=== PATIENT | female | born 1965 | race Caucasian/White ===

== ENCOUNTER 2020-07-16 16:52 | Emergency (ER) | payer OTHER ==
[2020-07-16 17:02] VITALS: BP 138/80; PULSE 84; TEMP 98.2; BMI 24.7
[2020-07-16] MEDS ORDERED: METOCLOPRAMIDE HCL INJECTION 10 MG/2 ML VIAL IVPUSH ONE (17:49)
[2020-07-16] MEDS ORDERED: LACTATED RINGERS SOLUTION 1000 ML INFUS.BAG IV ONE (17:49)
[2020-07-16] MEDS ORDERED: ACETAMINOPHEN 325 MG TABLET (FP) PO ONE (17:50)
[2020-07-16] MEDS ORDERED: ACETAMINOPHEN 325 MG TABLET (FP) ONE (18:02)
[2020-07-16] MEDS ORDERED: METOCLOPRAMIDE HCL INJECTION 10 MG/2 ML VIAL ONE (18:03)
[2020-07-16] MEDS ORDERED: valACYclovir HCL 1000 MG TABLET PO ONE (18:14)
[2020-07-16] MEDS ORDERED: predniSONE 20 MG TABLET (UD) PO ONE (18:14)
[2020-07-16] MEDS ORDERED: SULFAMETHOXAZOLE/TRIMETHOPRIM 800MG/160MG D.S. TABLET PO ONE (18:14)
[2020-07-16 18:34] LABS: BASO % 2.7 % (0-2.0); EOS % 0.7 % (0-4.5); HEMATOCRIT 37.2 % (32.4-45.2); HEMOGLOBIN 12.4 GM/dL (10.7-15.3); LYMPH % 30.5 % (8-40); MCH 30.2 pg (25.7-33.7); MCHC 33.3 g/dl (32.0-36.0); MEAN CELL VOLUME 90.7 fl (80-96); MEAN PLT VOLUME 7.7 fl (7.5-11.1); NEUT % 60.1 % (42.8-82.8); PLATELET COUNT 243 K/MM3 (134-434); RDW 15.4 % (11.6-15.6); WHITE BLOOD COUNT 5.8 K/mm3 (4.0-10.0)
[2020-07-16 18:53] LABS: POTASSIUM 4.3 mmol/L (3.5-5.1)
[2020-07-16 18:58] LABS: CALCIUM 9.5 mg/dL (8.5-10.1)
[2020-07-16 18:59] LABS: ALBUMIN 3.6 g/dl (3.4-5.0); BLOOD UREA NITROGEN 18.2 mg/dL (7-18)
[2020-07-16 19:02] LABS: CREATININE 0.8 mg/dL (0.55-1.3)
[2020-07-16 19:04] LABS: BILIRUBIN,TOTAL 0.4 mg/dL (0.2-1); TOT PROT 7.1 g/dl (6.4-8.2)
[2020-07-16 19:19] LABS: ERYTHROCYTE SEDIMENTATION RATE 19 mm/hr (0-30)
[2020-07-16] MEDS ORDERED: valACYclovir HCL 500 MG TABLET (FP) ONE (19:42)
[2020-07-16] MEDS ORDERED: SULFAMETHOXAZOLE/TRIMETHOPRIM 800MG/160MG D.S. TABLET ONE (19:42)
[2020-07-16] MEDS ORDERED: predniSONE 20 MG TABLET (UD) ONE (19:42)
[2020-07-16 21:19] LABS: POTASSIUM 3.7 mmol/L (3.5-5.1)
[2020-07-16 21:20] LABS: CALCIUM 8.8 mg/dL (8.5-10.1)
[2020-07-16 21:21] LABS: BLOOD UREA NITROGEN 16.3 mg/dL (7-18)
[2020-07-16 21:24] LABS: CREATININE 0.8 mg/dL (0.55-1.3)
== END 2020-07-16 22:13 | disposition home or self-care (01) ==
LOC: JER 16:52
PROC: 3E033GC Introduction of Other Therapeutic Substance into Peripheral Vein, Percutaneous Approach (ICD-10-PCS; principal; 2020-07-16)
PROC: 3E033GC Introduction of Other Therapeutic Substance into Peripheral Vein, Percutaneous Approach (ICD-10-PCS; 2020-07-16)
DX: G51.9 Disorder of facial nerve, unspecified (principal); L08.9 Local infection of the skin and subcutaneous tissue, unspecified; R51.9 Headache, unspecified
CPT/HCPCS: 36415; 70450-TC; 80048; 80053; 85025; 85651; 87804; 99284-25; C9803; U0003; U0005

== ENCOUNTER 2020-08-14 23:20 | Emergency (ER) | payer OTHER ==
[2020-08-14 23:30] VITALS: BMI 24.7
[2020-08-15] MEDS ORDERED: METOCLOPRAMIDE HCL INJECTION 10 MG/2 ML VIAL IVPUSH ONE (01:20)
[2020-08-15] MEDS ORDERED: IBUPROFEN 400 MG TABLET (FP) PO ONE ×2 (01:20→02:26)
[2020-08-15] MEDS ORDERED: SODIUM CHLORIDE 0.9% 500 ML INFUS.BAG IV ONE (01:20)
[2020-08-15] MEDS ORDERED: METOCLOPRAMIDE HCL INJECTION 10 MG/2 ML VIAL ONE (02:26)
[2020-08-15 02:54] LABS: BASO % 0.4 % (0-2.0); EOS % 2.5 % (0-4.5); HEMATOCRIT 39.3 % (32.4-45.2); HEMOGLOBIN 13.1 GM/dL (10.7-15.3); LYMPH % 30.7 % (8-40); MCH 31.1 pg (25.7-33.7); MCHC 33.3 g/dl (32.0-36.0); MEAN CELL VOLUME 93.3 fl (80-96); MEAN PLT VOLUME 7.7 fl (7.5-11.1); MONO % 8.8 % (3.8-10.2); NEUT % 57.6 % (42.8-82.8); PLATELET COUNT 316 K/MM3 (134-434); RBC 4.21 M/mm3 (3.60-5.2); WHITE BLOOD COUNT 5.9 K/mm3 (4.0-10.0)
[2020-08-15 04:15] LABS: CALCIUM 9.1 mg/dL (8.5-10.1)
[2020-08-15 04:17] LABS: ALBUMIN 3.7 g/dl (3.4-5.0); BLOOD UREA NITROGEN 16.4 mg/dL (7-18)
[2020-08-15 04:19] LABS: CREATININE 0.9 mg/dL (0.55-1.3)
[2020-08-15 04:20] LABS: BILIRUBIN,TOTAL 0.3 mg/dL (0.2-1); TOT PROT 7.7 g/dl (6.4-8.2)
[2020-08-15 05:06] VITALS: BP 110/67; PULSE 81; TEMP 98.3
== END 2020-08-15 06:08 | disposition home or self-care (01) ==
LOC: JER 23:20
PROC: 3E033GC Introduction of Other Therapeutic Substance into Peripheral Vein, Percutaneous Approach (ICD-10-PCS; principal; 2020-08-14)
DX: R51.9 Headache, unspecified (principal); R10.84 Generalized abdominal pain
CPT/HCPCS: 36415; 74177-TC; 80053; 83690; 85025; 99285-25; Q9967

== ENCOUNTER 2021-10-22 13:52 | Emergency (ER) | payer OTHER ==
[2021-10-22 14:12] VITALS: BP 115/79; PULSE 95; TEMP 97.8; BMI 26.4
[2021-10-22 16:57] LABS: BASO % 0.6 % (0-2.0); EOS % 0.6 % (0-4.5); HEMATOCRIT 41.1 % (32.4-45.2); HEMOGLOBIN 13.9 GM/dL (10.7-15.3); LYMPH % 23.1 % (8-40); MCH 30.7 pg (25.7-33.7); MCHC 33.8 g/dl (32.0-36.0); MEAN PLT VOLUME 7.2 fl (7.5-11.1); MONO % 4.2 % (3.8-10.2); NEUT % 71.5 % (42.8-82.8); PLATELET COUNT 280 10^3/uL (134-434); RBC 4.51 M/mm3 (3.60-5.2); RDW 13.1 % (11.6-15.6); WHITE BLOOD COUNT 6.6 K/mm3 (4.0-10.0)
[2021-10-22 17:24] LABS: BLOOD UREA NITROGEN 10.1 mg/dL (7-18); CALCIUM 9.6 mg/dL (8.5-10.1)
[2021-10-22 17:25] LABS: ALBUMIN 4.2 g/dl (3.4-5.0)
[2021-10-22 17:28] LABS: CREATININE 0.8 mg/dL (0.55-1.3)
[2021-10-22 17:29] LABS: BILIRUBIN,TOTAL 0.4 mg/dL (0.2-1); TOT PROT 8.1 g/dl (6.4-8.2)
== END 2021-10-22 18:55 | disposition home or self-care (01) ==
LOC: JER 13:52
DX: R07.9 Chest pain, unspecified (principal); R55 Syncope and collapse
CPT/HCPCS: 36415; 71046-TC-FY; 80053; 84484; 85025; 93005; 93010; 99284-25

== ENCOUNTER 2021-11-13 13:10 | Emergency (ER) | payer OTHER ==
[2021-11-13 13:38] VITALS: BP 113/76; PULSE 68; RESP 16; TEMP 97.8; BMI 25.7
== END 2021-11-13 14:51 | disposition home or self-care (01) ==
LOC: JERFT 13:10
PROC: 2W3TX1Z Immobilization of Left Foot using Splint (ICD-10-PCS; principal; 2021-11-13)
DX: S92.144A Nondisplaced dome fracture of right talus, initial encounter for closed fracture (principal); W10.9XXA Fall (on) (from) unspecified stairs and steps, initial encounter
CPT/HCPCS: 73630-TC-RT-FY; 99283-25

== ENCOUNTER 2021-11-18 12:34 | Emergency (ER) | payer OTHER ==
[2021-11-18 13:03] VITALS: BP 110/76; PULSE 82; RESP 18; TEMP 98.3; BMI 24.7
[2021-11-18] MEDS ORDERED: KETOROLAC TROMETHAMINE 30 MG/1 ML VIAL IM ONE (13:57)
[2021-11-18] MEDS ORDERED: DIPHTH,PERTUSS(ACELL),TET 0.5 ML DISP.SYRIN IM ONE ×2 (13:57→14:09)
[2021-11-18] MEDS ORDERED: KETOROLAC TROMETHAMINE 30 MG/1 ML VIAL ONE (14:08)
== END 2021-11-18 17:20 | disposition home or self-care (01) ==
LOC: JERFT 12:34 → JER 12:34 → JERFT 17:20
PROC: 3E0234Z Introduction of Serum, Toxoid and Vaccine into Muscle, Percutaneous Approach (ICD-10-PCS; principal; 2021-11-18)
PROC: 3E0233Z Introduction of Anti-inflammatory into Muscle, Percutaneous Approach (ICD-10-PCS; 2021-11-18)
DX: S09.90XA Unspecified injury of head, initial encounter (principal); S50.812A Abrasion of left forearm, initial encounter; S80.812A Abrasion, left lower leg, initial encounter; Y04.2XXA Assault by strike against or bumped into by another person, initial encounter
CPT/HCPCS: 70450-TC; 71046-TC-FY; 73030-TC-LT-FY; 73030-TC-RT-FY; 73070-TC-LT-FY; 73560-TC-LT-FY; 90471; 90715; 96372; 99285-25

== ENCOUNTER 2021-12-31 09:52 | Emergency (ER) | payer OTHER ==
[2021-12-31 09:58] VITALS: BMI 25.7
[2021-12-31] MEDS ORDERED: ACETAMINOPHEN 1000 MG/100 ML BAG IVPB ONE (11:04)
[2021-12-31] MEDS ORDERED: SODIUM CHLORIDE 0.9% 500 ML INFUS.BAG IV ONE (11:04)
[2021-12-31] MEDS ORDERED: ACETAMINOPHEN INJECTION 100 ML IVPB ONE (11:32)
[2021-12-31 11:57] LABS: EPI CELLS 1 /uL (0-25.1); HYALINE CASTS 0 /uL (0-3.1); URINE APPEARANCE CLEAR; URINE BACTERIA 2 /uL (0-1359); URINE BILIRUBIN NEGATIVE (NEGATIVE); URINE COLOR YELLOW; URINE GLUCOSE (UA) NEGATIVE (NEGATIVE); URINE KETONE NEGATIVE (NEGATIVE); URINE LEUK ESTERASE NEGATIVE (NEGATIVE); URINE NITRITE NEGATIVE (NEGATIVE); URINE PROTEIN NEGATIVE (NEGATIVE); URINE RBC 5 /uL (0-23.9); URINE UROBILINOGEN 0.2 mg/dL (0.2-1.0); URINE WBC 2 /uL (0-25.8)
[2021-12-31 12:08] LABS: BASO % 0.8 % (0-2.0); EOS % 2.3 % (0-4.5); HEMATOCRIT 39.6 % (32.4-45.2); HEMOGLOBIN 13.5 GM/dL (10.7-15.3); MCH 31.5 pg (25.7-33.7); MCHC 34.2 g/dl (32.0-36.0); MEAN CELL VOLUME 92.1 fl (80-96); MEAN PLT VOLUME 8.1 fl (7.5-11.1); MONO % 6.1 % (3.8-10.2); NEUT % 68.8 % (42.8-82.8); PLATELET COUNT 308 10^3/uL (134-434); RBC 4.29 M/mm3 (3.60-5.2); RDW 13.5 % (11.6-15.6); WHITE BLOOD COUNT 6.6 K/mm3 (4.0-10.0)
[2021-12-31 12:15] LABS: ALBUMIN 3.6 g/dl (3.4-5.0); BLOOD UREA NITROGEN 15.8 mg/dL (7-18); CALCIUM 9.3 mg/dL (8.5-10.1); CHLORIDE 105 mmol/L (98-107); CO2 30 mmol/L (21-32); GLUCOSE,RANDOM 87 mg/dL (74-106); SODIUM 139 mmol/L (136-145)
[2021-12-31 12:18] LABS: CREATININE 0.7 mg/dL (0.55-1.3); SGOT/AST 67 U/L (15-37); SGPT/ALT 43 U/L (13-61)
[2021-12-31 12:20] LABS: BILIRUBIN,TOTAL 0.4 mg/dL (0.2-1)
[2021-12-31 12:21] LABS: ALK PHOS 101 U/L (45-117)
[2021-12-31 12:26] LABS: ANION GAP 4 MMOL/L (8-16)
[2021-12-31 16:31] VITALS: BP 110/78; PULSE 78; RESP 19; TEMP 98.6
== END 2021-12-31 16:33 | disposition home or self-care (01) ==
LOC: JER 09:52
PROC: 3E033GC Introduction of Other Therapeutic Substance into Peripheral Vein, Percutaneous Approach (ICD-10-PCS; principal; 2021-12-31)
DX: R10.32 Left lower quadrant pain (principal)
CPT/HCPCS: 36415; 74177-TC; 80053; 81003; 84132; 85025; 87086; 99285-25; Q9967

== ENCOUNTER 2022-02-22 11:19 | Emergency (ER) | payer OTHER ==
[2022-02-22 11:46] VITALS: BP 133/80; PULSE 83; RESP 18; TEMP 98.1; BMI 24.1
[2022-02-22] MEDS ORDERED: ACETAMINOPHEN 500 MG TABLET (FP) PO ONE (12:27)
[2022-02-22] MEDS ORDERED: ACETAMINOPHEN 500 MG TABLET (FP) ONE (12:41)
[2022-02-22] MEDS ORDERED: IBUPROFEN 600 MG TABLET (FP) PO ONE ×2 (13:20→13:27)
== END 2022-02-22 13:45 | disposition home or self-care (01) ==
LOC: JER 11:19
DX: S06.0X0A Concussion without loss of consciousness, initial encounter (principal); W22.8XXA Striking against or struck by other objects, initial encounter
CPT/HCPCS: 70450-TC; 99284-25

== ENCOUNTER 2023-01-22 10:38 | Emergency (ER) | payer OTHER ==
[2023-01-22 10:48] VITALS: TEMP 97.8; BMI 24.6
[2023-01-22 12:23] LABS: BASO % 0.3 % (0-2.0); HEMATOCRIT 40.7 % (32.4-45.2); HEMOGLOBIN 13.9 GM/dL (10.7-15.3); LYMPH % 26.9 % (8-40); MCH 30.9 pg (25.7-33.7); MCHC 34.2 g/dl (32.0-36.0); MEAN CELL VOLUME 90.4 fl (80-96); MEAN PLT VOLUME 7.1 fl (7.5-11.1); MONO % 6.7 % (3.8-10.2); NEUT % 64.1 % (42.8-82.8); PLATELET COUNT 297 10^3/uL (134-434); RDW 13.6 % (11.6-15.6); WHITE BLOOD COUNT 6.1 K/mm3 (4.0-10.0)
[2023-01-22 12:24] LABS: URINE APPEARANCE Clear; URINE BILIRUBIN Negative (NEGATIVE); URINE COLOR Yellow; URINE GLUCOSE (UA) Negative (NEGATIVE); URINE KETONE Negative (NEGATIVE); URINE LEUK ESTERASE Negative (NEGATIVE); URINE NITRITE Negative (NEGATIVE); URINE PROTEIN Negative (NEGATIVE); URINE UROBILINOGEN 0.2 mg/dL (0.2-1.0)
[2023-01-22 12:40] LABS: POTASSIUM 4.8 mmol/L (3.5-5.1)
[2023-01-22 12:42] LABS: CALCIUM 9.4 mg/dL (8.5-10.1)
[2023-01-22 12:43] LABS: ALBUMIN 3.8 g/dl (3.4-5.0); BLOOD UREA NITROGEN 15.2 mg/dL (7-18); MAGNESIUM 2.1 mg/dL (1.8-2.4)
[2023-01-22 12:46] LABS: CREATININE 0.8 mg/dL (0.55-1.3)
[2023-01-22 12:47] LABS: BILIRUBIN,TOTAL 0.5 mg/dL (0.2-1); TOT PROT 7.6 g/dl (6.4-8.2)
[2023-01-22 14:19] VITALS: BP 110/64; PULSE 72; RESP 16
[2023-01-22 22:43] LABS: EPI CELLS 0.5 /uL (0-25.1); HYALINE CASTS 0.14 /uL (0-3.1); URINE RBC 3.2 /uL (0-23.9); URINE WBC 1.1 /uL (0-25.8)
== END 2023-01-22 14:00 | disposition home or self-care (01) ==
LOC: JER 10:38
DX: R07.89 Other chest pain (principal); N64.4 Mastodynia
CPT/HCPCS: 36415; 71046-TC-FY; 80053; 81003; 83735; 84484; 85025; 93005; 93010; 99285-25

== ENCOUNTER 2023-11-27 02:57 | Emergency (ER) | payer OTHER ==
[2023-11-27 03:06] VITALS: BP 115/80; PULSE 93; RESP 18; TEMP 98.2; BMI 24.2
[2023-11-27] MEDS ORDERED: KETOROLAC TROMETHAMINE 30 MG/1 ML VIAL ONE (03:19)
[2023-11-27] MEDS: KETOROLAC TROMETHAMINE 30 MG/1 ML VIAL IVPUSH ONE (03:28)
[2023-11-27 04:22] LABS: BASO % 0.4 % (0-2.0); EOS % 4.1 % (0-4.5); HEMATOCRIT 38.7 % (32.4-45.2); HEMOGLOBIN 13.1 GM/dL (10.7-15.3); LYMPH % 31.2 % (8-40); MCH 30.6 pg (25.7-33.7); MCHC 33.8 g/dl (32.0-36.0); MEAN CELL VOLUME 90.5 fl (80-96); MEAN PLT VOLUME 7.3 fl (7.5-11.1); NEUT % 56.3 % (42.8-82.8); PLATELET COUNT 286 10^3/uL (134-434); RBC 4.27 M/mm3 (3.60-5.2); RDW 13.8 % (11.6-15.6); WHITE BLOOD COUNT 6.2 K/mm3 (4.0-10.0)
[2023-11-27 04:28] LABS: POTASSIUM 4.1 mmol/L (3.5-5.1)
[2023-11-27 04:30] LABS: ALBUMIN 3.7 g/dl (3.4-5.0); BLOOD UREA NITROGEN 12.2 mg/dL (7-18); CALCIUM 8.8 mg/dL (8.5-10.1)
[2023-11-27 04:33] LABS: CREATININE 0.9 mg/dL (0.55-1.3)
[2023-11-27 04:35] LABS: BILIRUBIN,TOTAL 0.5 mg/dL (0.2-1); TOT PROT 7.3 g/dl (6.4-8.2)
== END 2023-11-27 06:38 | disposition home or self-care (01) ==
LOC: FER 02:57
PROC: 3E0333Z Introduction of Anti-inflammatory into Peripheral Vein, Percutaneous Approach (ICD-10-PCS; principal; 2023-11-27)
DX: R07.89 Other chest pain (principal)
CPT/HCPCS: 36415; 71045-TC-FY; 80053; 84484; 85025; 93005; 99285-25

== ENCOUNTER 2024-10-22 06:27 | Day surgery (SDC) | payer OTHER ==
[2024-10-16 10:48] VITALS: BMI 27.9
[2024-10-22] MEDS ORDERED: MIDAZOLAM HCL 2 MG/2 ML SINGLE DOSE VIAL ONE (08:50)
[2024-10-22] MEDS ORDERED: ONDANSETRON 4 MG/2 ML VIAL ONE (09:25)
[2024-10-22] MEDS: ONDANSETRON 4 MG/2 ML VIAL IVPUSH ONE (09:28)
[2024-10-22 09:39] VITALS: RESP 18
[2024-10-22 12:09] VITALS: BP 115/64; PULSE 73; TEMP 97.7
== END 2024-10-22 12:00 | disposition home or self-care (01) ==
LOC: JASU-SURG 06:27
PROVIDERS: ATTEND Urology
PROC: 0TF4XZZ Fragmentation in Left Kidney Pelvis, External Approach (ICD-10-PCS; principal; 2024-10-22 08:53)
DX: N20.0 Calculus of kidney (principal)